=== PATIENT | male | born 1935 | race Caucasian/White ===

== ENCOUNTER 2017-09-25 01:02 | Emergency (ER) | payer MEDICARE, BC ==
[2017-09-25 01:20] LABS: BASOPHILS % (AUTO) 1 % (0-3); EOSINOPHILS % (AUTO) 2 % (0-9); HEMATOCRIT 43 % (39-53); HEMOGLOBIN 14.7 gm/dl (13.5-17.7); LYMPHOCYTES % (AUTO) 11.6 % (10-50); MEAN CORPUSCULAR HEMOGLOBIN 31.9 pg (27.0-32.0); MEAN CORPUSCULAR VOLUME 94 fL (80-100); MONOCYTES % (AUTO) 6.1 % (0-12)
[2017-09-25 01:23] LABS: LACTIC ACID 1.7 mMol/L (0.0-2.0)
[2017-09-25 01:35] LABS: ALBUMIN 3.3 gm/dl (3.4-5.0); ALKALINE PHOSPHATASE 65 IU/L (46-116); ALT 49 IU/L (14-63); AST 32 IU/L (15-37); BILIRUBIN,TOTAL 0.5 mg/dl (0.2-1.0); BLOOD UREA NITROGEN 11 mg/dl (7-18); CALCIUM 8.7 mg/dl (8.5-10.1); CREATININE 1.18 mg/dl (0.80-1.30); GLUCOSE 120 mg/dl (74-106); POTASSIUM 3.8 mMol/L (3.5-5.1); SODIUM 134 mMol/L (136-145); TOTAL PROTEIN 7.3 gm/dl (6.4-8.2); TROP I < 0.017 ng/ml (0.000-0.056)
[2017-09-25 01:45] LABS: CARBON DIOXIDE 28.6 mEq/L (21-32); CHLORIDE 100 mMol/L (98-107)
[2017-09-25] MEDS ORDERED: AZITHROMYCIN 250 MG TAB PO ONE (02:00)
[2017-09-25] MEDS ORDERED: PREDNISONE 20 MG TAB PO ONE (02:00)
[2017-09-25] MEDS ORDERED: AZITHROMYCIN 250 MG TAB ONE (02:18)
[2017-09-25] MEDS ORDERED: PREDNISONE 20 MG TAB ONE (02:18)
[2017-09-25 03:40] VITALS: RESP 20
[2017-09-25 03:48] VITALS: BP 132/77; PULSE 85; TEMP 99.7; O2SAT 95
== END 2017-09-25 02:38 | disposition home or self-care (01) | DRG 195 ==
LOC: ED 01:02
DX: J18.1 Lobar pneumonia, unspecified organism (principal); R06.02 Shortness of breath
CPT/HCPCS: 36415; 71045; 80053; 83880; 84484; 85025; 93005; 99283; A9270-GY